=== PATIENT | male | born 1930 | race Caucasian/White ===

== ENCOUNTER → 2016-10-22 | Outpatient (CLI) | payer BC ==
[~2016-10-22] MED LIST: ATOR10TA88 PO; CMD2 PO; GLIM1TAB2 PO; LISI-787 PO; LISI20TA PO; METO50TA16 PO; MULT-513 PO; TIMO0.2534 OPB; TIMO0.5S2 OP; WARF1TAB PO; WARF1TAB6 PO; WARF2TAB8 PO
[2016-10-22 11:09] LABS: BASO % 0.2 %; BASO ABS # 0.01 K/uL (0-0.2); COMPLETE YES; EOS % 1.1 %; HEMATOCRIT 46.7 % (42-52); IG% 0.2 %; LYMPH % 35.8 %; LYMPH ABS # 2.24 K/uL (1.2-3.4); MEAN CELL VOLUME 91.9 fL (80-100); MEAN CORPUSCULAR HEMOGLOBIN 30.3 pg (25-34); MEAN PLATELET VOLUME 10.4 fL (7.4-10.4); MONO % 7.3 %; NEUT % 55.4 %; PLATELET COUNT 177 K/uL (130-400); RED BLOOD COUNT 5.08 M/uL (4.7-6.1); WHITE BLOOD COUNT 6.26 K/uL (4.8-10.8)
[2016-10-22 12:31] LABS: ESTIMATED AVERAGE GLUCOSE 166 mg/dl; HA1C FLAG Normal (Normal)
== END | disposition home or self-care (01) ==
LOC: C.LAB 10:34
PROVIDERS: ATTEND Internal Medicine Geriatric Medicine
DX: I10 Essential (primary) hypertension (principal); M19.90 Unspecified osteoarthritis, unspecified site; E78.5 Hyperlipidemia, unspecified; G62.9 Polyneuropathy, unspecified; Z79.01 Long term (current) use of anticoagulants; E11.9 Type 2 diabetes mellitus without complications; I48.2 Chronic atrial fibrillation

== ENCOUNTER → 2017-01-18 | Outpatient (CLI) | payer BC ==
[~2017-01-18] MED LIST changes: +ATOR10TA82 PO; -ATOR10TA88 PO; -WARF1TAB PO
[2017-01-18 12:22] LABS: BASO % 0.2 %; BASO ABS # 0.01 K/uL (0-0.2); COMPLETE YES; EOS % 0.9 %; HEMATOCRIT 43.8 % (42-52); IG% 0.2 %; LYMPH % 33.6 %; LYMPH ABS # 2.13 K/uL (1.2-3.4); MEAN CELL VOLUME 92.6 fL (80-100); MEAN CORPUSCULAR HEMOGLOBIN 31.7 pg (25-34); MEAN CORPUSCULAR HGB CONC 34.2 g/dl (32-36); MEAN PLATELET VOLUME 10.2 fL (7.4-10.4); MONO % 7.7 %; NEUT % 57.4 %; PLATELET COUNT 193 K/uL (130-400); RED BLOOD COUNT 4.73 M/uL (4.7-6.1); WHITE BLOOD COUNT 6.33 K/uL (4.8-10.8)
[2017-01-18 12:36] LABS: ALT/SGPT 26 U/L (12-78); AST/SGOT 16 U/L (15-37); BLOOD UREA NITROGEN 21 mg/dl (7-18); BUN/CREATININE RATIO 26.5 (10-20); CALCIUM 9.1 mg/dl (8.5-10.1); CARBON DIOXIDE 32 mmol/L (21-32); CHLORIDE 100 mmol/L (98-107); CHOLESTEROL 159 mg/dl (0-200); GLUCOSE 210 mg/dl (70-99); POTASSIUM 4.6 mmol/L (3.5-5.1); SODIUM 139 mmol/L (136-145); TRIGLYCERIDES 132 mg/dl (0-150); VERY LOW DENSITY LIPOPROT CALC 26 mg/dl
[2017-01-18 12:46] LABS: ALB/GLOB RATIO 0.9 (0.9-2); ALKALINE PHOSPHATASE 132 U/L (45-117); CHOLESTEROL/HDL RATIO 4.1; HDL CHOLESTEROL 39 mg/dl; LDL CHOLESTEROL CALCULATED 94 mg/dl
[2017-01-18 12:59] LABS: ESTIMATED AVERAGE GLUCOSE 163 mg/dl; HA1C FLAG Normal (Normal)
--- NOTE | 2017-01-23 08:17 | CODING QUERY MEDICAL NECESSITY ---
SUPPORTING DIAGNOSIS NEEDED Dr. Jane, A supporting diagnosis is required for the test/procedure performed on this patient in order for us to be reimbursed by the patient's insurance. Please provide a supporting diagnosis for the following test/procedure listed below next to the test name along with your signature. *If there is no additional diagnosis for this patient that would support the following test/procedure please document that below next to the test/procedure. Test(s)/Procedure(s) that require a supporting diagnosis: * ([id number]) VITAMIN D ASSAY DIAGNOSIS: * ([id number]) B12 VITAMIN LEVEL DIAGNOSIS: DATE OF SERVICE: 01/18/17 Provider Signature: Date: Thank you Adelfo Bonds [facility] Information Management Once completed, please kindly fax back to [phone] For questions please call [phone]
== END | disposition home or self-care (01) ==
LOC: C.LAB 09:59
PROVIDERS: ATTEND Internal Medicine Geriatric Medicine
DX: I10 Essential (primary) hypertension (principal); M19.90 Unspecified osteoarthritis, unspecified site; N20.0 Calculus of kidney; G62.9 Polyneuropathy, unspecified; Z79.01 Long term (current) use of anticoagulants; E11.9 Type 2 diabetes mellitus without complications; I48.2 Chronic atrial fibrillation; E55.9 Vitamin D deficiency, unspecified

== ENCOUNTER → 2017-01-24 | Outpatient (CLI) | payer BC ==
[~2017-01-24] MED LIST changes: +GADAVIST IV PRN
--- NOTE | 2017-01-24 15:17 | DIAGNOSTIC IMAGING REPORT ---
MRI OF THE ABDOMEN COMBO CLINICAL HISTORY: Pancreatic carcinoma. Abnormal MRI COMPARISON STUDY: 01/16/2016. TECHNIQUE: MRI of the abdomen is performed transverse T1 and T2-weighted sequences in the axial and coronal planes. Contrast enhanced sequences were acquired following the IV administration of . FINDINGS: Lower chest: No pleural effusion is identified. The heart is normal in size. Liver: The liver is normal in size, contour, and signal intensity. No intrahepatic biliary ductal dilatation is seen. The hepatic veins and portal veins are patent. Gallbladder: Unremarkable. Spleen: Normal in size and signal intensity. Pancreas: Atrophy. 2. Moderate intensity lesions in the pancreatic head unchanged. Several smaller foci within the pancreatic body and tail also unchanged. No new or interval findings. No dilatation of the pancreatic duct. Adrenal glands: Unchanged. Benign right adrenal adenoma unaltered. Small renal cysts unchanged. Kidneys: Several small renal cysts unchanged. No evidence for hydronephrosis. Bowel: Visualized portions of the small bowel and colon show no evidence of obstruction. Peritoneum: There is no abdominal ascites. Lymphadenopathy: None. Skeletal structures: Visualized skeletal structures times are normal marrow signal intensity. IMPRESSION: 1. No change in the appearance of a right adrenal adenoma, considered stable and most likely benign.. 2. Unchanging foci of increased signal involving the pancreas. All foci are stable. 3. No change compared to the prior MRI dated 01/16/2016 Electronically signed by: Omero Aparicio M.D. 01/24/2017 3:15 PM Dictated Date/Time: 01/24/2017 3:07 PM
== END | disposition home or self-care (01) ==
LOC: C.MRI 13:34
PROVIDERS: ATTEND Internal Medicine Geriatric Medicine
DX: D49.0 Neoplasm of unspecified behavior of digestive system (principal)

== ENCOUNTER → 2017-05-06 | Outpatient (CLI) | payer BC ==
[~2017-05-06] MED LIST changes: -ATOR10TA82 PO; +ATOR10TA88 PO; -GADAVIST IV PRN
[2017-05-06 12:41] LABS: BLOOD UREA NITROGEN 23 mg/dl (7-18); BUN/CREATININE RATIO 25.7 (10-20); CALCIUM 9.5 mg/dl (8.5-10.1); CARBON DIOXIDE 33 mmol/L (21-32); CHLORIDE 102 mmol/L (98-107); CREATININE 0.89 mg/dl (0.60-1.40); GLUCOSE 241 mg/dl (70-99); POTASSIUM 4.1 mmol/L (3.5-5.1); SODIUM 139 mmol/L (136-145)
[2017-05-06 13:44] LABS: ESTIMATED AVERAGE GLUCOSE 166 mg/dl; HA1C FLAG Normal (Normal)
== END | disposition home or self-care (01) ==
LOC: C.LAB 10:28
PROVIDERS: ATTEND Internal Medicine Geriatric Medicine
DX: E11.9 Type 2 diabetes mellitus without complications (principal); E55.9 Vitamin D deficiency, unspecified

== ENCOUNTER 2017-06-19 20:32 | Emergency (ER) | payer BC ==
[~2017-06-19] VITALS: Ht 182.9 cm; Wt 86.0 kg
[~2017-06-19 20:32] MED LIST changes: -LISI-787 PO; -MULT-513 PO; -TIMO0.5S2 OP; -WARF1TAB6 PO
[2017-06-19 20:38] VITALS: Ht 182.9 cm; Wt 86.0 kg
[2017-06-19] MEDS ORDERED: WARF1TAB6 PO ×2 (21:02)
[2017-06-19] MEDS ORDERED: LISI-787 PO (21:02)
[2017-06-19] MEDS ORDERED: GLIM1TAB2 PO (21:02)
[2017-06-19] MEDS ORDERED: TIMO0.5S2 OP (21:02)
[2017-06-19] MEDS ORDERED: METO50TA16 PO (21:02)
[2017-06-19] MEDS ORDERED: MULT-513 PO (21:04)
[2017-06-19 21:10] VITALS: BP 156/73; PULSE 80; TEMP 36.4; O2SAT 95
--- NOTE | 2017-06-19 23:05 | EMERGENCY ROOM VISIT NOTE ---
History First contact with patient: 20:49 Chief Complaint: EYE ASSESSMENT Stated Complaint: CONTACT LENS STUCK IN L History of Present Illness The patient is a 87 year old male who presents to the Emergency Room with complaints of contact lens stuck in his left eye. The patient wears hard contact lenses for vision correction. He states that every year or so he has an episode where he is not able to remove the contact lens himself. He does have an old suction contact lens remover, however he believes this is damaged and he was not able to remove this himself. The patient does not have pain or injury. He rates his discomfort a 0/10. Review of Systems More than 6 systems were reviewed and otherwise negative with the exception of history of present illness. Past Medical/Surgical History No pertinent medical disease Family History No pertinent family history Social History Smoking Status: Former Smoker Housing Status: lives with family Current/Historical Medications Scheduled Glimepiride (Glimepiride), 2 TAB PO DAILY Lisinopril/Hctz (Zestoretic 20MG/12.5MG), 1 TAB PO DAILY Metoprolol Tartrate (Lopressor) (Lopressor), 50 MG PO BID Multivitamins/Minerals (Mvi With Minerals), 1 TAB PO DAILY Timolol Maleate (Ophth) (Timoptic-Xe 0.5% Oph), 1 DROPS OP BID Warfarin Sod (Jantoven), 1 MG PO QWED Warfarin Sod (Jantoven), 2 MG PO 6XWK Physical Exam Vital Signs Date Time Temp Pulse Resp B/P (MAP) Pulse Ox O2 Delivery O2 Flow Rate FiO2 06/19/17 21:10 36.4 80 18 156/73 95 06/19/17 20:38 36.4 81 18 214/98 93 Room Air Pain Rating (0-10): 0 Physical Exam VITALS: Vitals are noted on the nurse's note and reviewed by myself. Vital signs stable. GENERAL: Well-developed, well-nourished, white male, who is in no acute distress and resting comfortably. Patient is cooperative with the examination. EYES: Pupils equal round and reactive to light and accommodation. Conjunctivae without injection, sclerae without icterus. Extraocular movements intact. There is a hard contact lenses appreciated along the medial aspect of the left eye. Medical Decision & Procedures ED Course Physical exam and history were performed. Nursing notes, EMR, and Medication List were personally reviewed. Patient appears to have a contact lens stuck along the medial aspect of his left eye. Utilizing a contact lens remover, I was able to easily remove the lens without difficulty. Repeat examination of the eye shows no significant evidence of foreign body, laceration, or abrasion. The patient appears well for discharge home and was given instructions as below. The chart was completed utilizing [employer] Speech Voice Recognition Software. Grammatical errors, random word insertions, pronoun errors, and incomplete sentences are an occasional consequence of this system due to software limitations, ambient noise, and hardware issues. Any formal questions or concerns about the content, text, or information contained within the body of this dictation should be directly addressed to the provider for clarification. . Medical Decision Differential diagnosis includes, but is not limited to: Laceration, abrasion, foreign body, and others Impression Primary Impression: Contact lens stuck Departure Information Dispostion Home / Self-Care Condition GOOD Forms HOME CARE DOCUMENTATION FORM, IMPORTANT VISIT INFORMATION Patient Instructions My [facility] Additional Instructions You were seen and evaluated today on an emergency basis only. This is not a substitute for, or an effort to provide, complete comprehensive medical care. It is not possible to recognize and treat all injuries or illnesses in a single emergency department visit. For this reason it is recommended that you followup with your eye doctor with any ongoing or persistent symptoms. You are welcome to return to the emergency department anytime with new, worsening, or concerning symptoms.
== END 2017-06-19 21:11 | disposition home or self-care (01) ==
LOC: C.EDB 20:35 → C.EDD 21:11
DX: H02.816 Retained foreign body in left eye, unspecified eyelid (principal); Z87.891 Personal history of nicotine dependence; Z79.01 Long term (current) use of anticoagulants; Z79.899 Other long term (current) drug therapy

== ENCOUNTER → 2017-08-05 | Outpatient (CLI) | payer BC ==
[~2017-08-05] MED LIST changes: +ATOR10TA82 PO; -ATOR10TA88 PO; -CMD2 PO; +LISI-787 PO; -LISI20TA PO; +MULT-513 PO; -TIMO0.2534 OPB; +TIMO0.5S2 OP; +WARF1TAB6 PO; -WARF2TAB8 PO
[2017-08-05 12:15] LABS: ESTIMATED AVERAGE GLUCOSE 163 mg/dl; HA1C FLAG Normal (Normal)
[2017-08-05 12:37] LABS: BLOOD UREA NITROGEN 24 mg/dl (7-18); BUN/CREATININE RATIO 28.1 (10-20); CALCIUM 9.5 mg/dl (8.5-10.1); CARBON DIOXIDE 32 mmol/L (21-32); CHLORIDE 101 mmol/L (98-107); CREATININE 0.84 mg/dl (0.60-1.40); GLUCOSE 173 mg/dl (70-99); POTASSIUM 4.2 mmol/L (3.5-5.1); SODIUM 138 mmol/L (136-145)
== END | disposition home or self-care (01) ==
LOC: C.LAB 10:37
PROVIDERS: ATTEND Internal Medicine Geriatric Medicine
DX: I10 Essential (primary) hypertension (principal); E11.9 Type 2 diabetes mellitus without complications

== ENCOUNTER → 2017-11-15 | Outpatient (CLI) | payer BC ==
[2017-11-15 12:41] LABS: BLOOD UREA NITROGEN 20 mg/dl (7-18); CALCIUM 9.4 mg/dl (8.5-10.1); CARBON DIOXIDE 32 mmol/L (21-32); CREATININE 0.91 mg/dl (0.60-1.40); GLUCOSE 195 mg/dl (70-99); POTASSIUM 3.8 mmol/L (3.5-5.1); SODIUM 138 mmol/L (136-145)
[2017-11-15 13:14] LABS: HEMOGLOBIN A1C 7.2 % (4.5-5.6)
== END | disposition home or self-care (01) ==
LOC: C.LAB 09:58
PROVIDERS: ATTEND Internal Medicine Geriatric Medicine
DX: I10 Essential (primary) hypertension (principal); E11.9 Type 2 diabetes mellitus without complications

== ENCOUNTER → 2018-01-08 | Outpatient (CLI) | payer BC ==
[~2018-01-08] MED LIST changes: +AFRINWC
--- NOTE | 2018-01-08 11:22 | DIAGNOSTIC IMAGING REPORT ---
ULTRASOUND ABDOMEN COMPLETE CLINICAL HISTORY: Adrenal adenoma. Pancreatic IPMN. COMPARISON STUDY: Abdominal CT dated 01/14/2014 and 09/20/2011. Abdominal MRI dated 01/24/2017. TECHNIQUE: Real-time, grayscale, and color flow sonography of the abdomen was performed. Images are reviewed in the transverse and longitudinal planes. FINDINGS: Liver: The liver is normal in size and echotexture. There is no intrahepatic biliary ductal dilatation. The main portal vein is patent. Gallbladder: The gallbladder is normal in appearance. No gallstones are identified. There is no gallbladder wall thickening or pericholecystic fluid. A sonographic Hunter's sign is reportedly absent. The common bile duct measures up to 0.4 cm in diameter. Pancreas: A 1.4 cm cystic focus in the region of the pancreatic head likely represents a IPMN. Visualized portions of the pancreatic head and body are otherwise normal in appearance. The splenic vein is patent. Spleen: The spleen is normal in size and echotexture, measuring 10.7 cm in length. Kidneys: The kidneys demonstrate cortical atrophy. There is no hydronephrosis. The right kidney measures 10.4 cm in length and the left kidney measures 10.4 cm in length. No shadowing calculi are identified. Abdominal vasculature: Visualized portions of the abdominal aorta are normal in caliber. Ascites: None. IMPRESSION: 1. No acute sonographic abnormality is identified. No gallstones are seen. 2. The patient's known right adrenal adenoma was not seen by ultrasound. This has not significantly changed dating back to [address] and no further follow-up of this benign lesion is required. 3. A 1.4 cm cystic focus in the pancreatic head likely represents a small IPMN when correlated with prior imaging studies. Any further follow-up of this low suspicion lesion should be based on clinical grounds. Electronically signed by: Stew Casiano M.D. 01/08/2018 11:21 AM Dictated Date/Time: 01/08/2018 11:15 AM
== END | disposition home or self-care (01) ==
LOC: C.ULTR 09:14
PROVIDERS: ATTEND Internal Medicine Geriatric Medicine
DX: D35.00 Benign neoplasm of unspecified adrenal gland (principal); D49.0 Neoplasm of unspecified behavior of digestive system

== ENCOUNTER → 2018-01-31 | Outpatient (CLI) | payer BC ==
--- NOTE | 2018-01-31 11:02 | DIAGNOSTIC IMAGING REPORT ---
KUB CLINICAL HISTORY: R FLANK PAIN COMPARISON STUDY: CT scan performed January 2014 FINDINGS: There is a lumbar levoscoliosis. There are advanced degenerative changes in the lumbar spine. 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 There are no calcifications suspicious for renal calculi. There is a subtle 14 mm eggshell calcification projected over the left kidney. This likely corresponds to a rim calcified renal cyst. There is no pathologic bowel dilatation. There are multiple nonspecific pelvic basin calcifications. IMPRESSION: 1. No evidence of pathologic bowel dilatation 2. No renal calculi identified 3. Multiple nonspecific pelvic basin calcifications Electronically signed by: Kyle Key M.D. 01/31/2018 11:01 AM Dictated Date/Time: 01/31/2018 10:59 AM
== END | disposition home or self-care (01) ==
LOC: C.RAD 10:38
PROVIDERS: ATTEND Nurse Practitioner Adult Health
DX: R10.9 Unspecified abdominal pain (principal); N28.89 Other specified disorders of kidney and ureter

== ENCOUNTER → 2018-02-19 | Outpatient (CLI) | payer BC ==
[2018-02-19 12:05] LABS: BASO % 0.2 %; BASO ABS # 0.01 K/uL (0-0.2); EOS % 1.7 %; EOS ABS # 0.11 K/uL (0-0.5); HEMATOCRIT 42.4 % (42-52); HEMOGLOBIN 14.1 g/dL (14.0-18.0); IG# 0.01 K/uL (0.00-0.02); LYMPH % 31.5 %; LYMPH ABS # 2.03 K/uL (1.2-3.4); MEAN CELL VOLUME 93.2 fL (80-100); MEAN CORPUSCULAR HGB CONC 33.3 g/dl (32-36); MEAN PLATELET VOLUME 9.8 fL (7.4-10.4); MONO ABS # 0.58 K/uL (0.11-0.59); NEUT % 57.4 %; NEUT ABS # 3.71 K/uL (1.4-6.5); PLATELET COUNT 187 K/uL (130-400); RED CELL DISTRIBUTION WIDTH CV 14.5 % (11.5-14.5); RED CELL DISTRIBUTION WIDTH SD 48.8 fL (36.4-46.3); WHITE BLOOD COUNT 6.45 K/uL (4.8-10.8)
[2018-02-19 12:15] LABS: BLOOD UREA NITROGEN 18 mg/dl (7-18); CARBON DIOXIDE 32 mmol/L (21-32); CREATININE 0.81 mg/dl (0.60-1.40); GLUCOSE 141 mg/dl (70-99); POTASSIUM 3.8 mmol/L (3.5-5.1); SODIUM 136 mmol/L (136-145)
[2018-02-19 12:25] LABS: CHOLESTEROL 137 mg/dl (0-200); LDL CHOLESTEROL CALCULATED 77 mg/dl
[2018-02-19 12:28] LABS: HEMOGLOBIN A1C 7.6 % (4.5-5.6)
== END | disposition home or self-care (01) ==
LOC: C.LAB 10:28
PROVIDERS: ATTEND Nurse Practitioner Adult Health
DX: I10 Essential (primary) hypertension (principal); Z79.01 Long term (current) use of anticoagulants; E11.9 Type 2 diabetes mellitus without complications; I48.2 Chronic atrial fibrillation; R31.29 Other microscopic hematuria